=== PATIENT | female | born 1945 | race Caucasian/White ===

== ENCOUNTER 2017-12-20 06:49 | Day surgery (SDC) | payer OTHER ==
[~2017-12-20] VITALS: Ht 175.3 cm; Wt 67.7 kg
[2017-12-20] MEDS ORDERED: IOHEXOL 350 MG/ML 50 ML BTL (for Cath Lab) OTHER ONE (06:50)
[2017-12-20 07:15] VITALS: BP 139/68; PULSE 72; RESP 16; TEMP 98; O2SAT 94
[2017-12-20] MEDS ORDERED: FENO160T PO (07:15)
[2017-12-20] MEDS ORDERED: VITATAB11 (07:15)
[2017-12-20] MEDS ORDERED: OMEP20TA93 PO (07:15)
[2017-12-20] MEDS ORDERED: FLUT1BLS INH (07:15)
[2017-12-20] MEDS ORDERED: ATOR80TA45 PO (07:15)
[2017-12-20] MEDS ORDERED: ISOS30TA3 PO (07:15)
[2017-12-20] MEDS ORDERED: METO50TA PO (07:15)
[2017-12-20] MEDS ORDERED: LOSA100T3 PO (07:15)
[2017-12-20] MEDS ORDERED: AMLO10TA2 PO (07:15)
[2017-12-20] MEDS ORDERED: NITR0.4S SL (07:15)
[2017-12-20] MEDS ORDERED: ECASA81 PO (07:15)
[2017-12-20 07:33] LABS: AUTOMATED NEUTROPHIL # 3.4 TH/MM3 (1.8-7.7); BASOPHIL % 0.7 % (0.0-2.0); EOSINOPHIL # 0.2 TH/MM3 (0-0.4); EOSINOPHIL % 3.8 % (0.0-4.0); HEMATOCRIT 39.3 % (35.0-46.0); HEMOGLOBIN 13.6 GM/DL (11.6-15.3); LYMPHOCYTE # 1.6 TH/MM3 (1.0-4.8); MEAN CELL VOLUME 88.1 FL (80.0-100.0); MEAN CORPUSCULAR HEMOGLOBIN 30.5 PG (27.0-34.0); MEAN CORPUSCULAR HGB CONC 34.6 % (32.0-36.0); MEAN PLATELET VOLUME 9.7 FL (7.0-11.0); MONO % 9.2 % (0.0-8.0); MONOCYTE # 0.5 TH/MM3 (0-0.9); NEUT % 58.3 % (16.0-70.0); PLATELET COUNT 225 TH/MM3 (150-450); RED BLOOD COUNT 4.46 MIL/MM3 (4.00-5.30); RED CELL DISTRIBUTION WIDTH 14.6 % (11.6-17.2); WHITE BLOOD COUNT 5.8 TH/MM3 (4.0-11.0)
[2017-12-20 07:40] LABS: INTERNATIONAL NORMALIZED RATIO 1.1 RATIO; PROTHROMBIN TIME - PATIENT 10.8 SEC (9.8-11.6)
[2017-12-20] MEDS ORDERED: methylPREDNISolone SOD SUCC 125 MG/2 ML VIAL IV PUSH SCH (07:45)
[2017-12-20] MEDS ORDERED: FAMOTIDINE 20 MG/2 ML VIAL IV PUSH SCH (07:45)
[2017-12-20] MEDS ORDERED: diphenhydrAMINE HCL 50 MG/ML VIAL IV PUSH SCH (07:45)
[2017-12-20] MEDS ORDERED: SODIUM CHLOR 0.9% 1000 ML INJ 1,000 ML IV SCH (07:45)
[2017-12-20 07:52] LABS: BICARBONATE 25.2 MEQ/L (21.0-32.0); CALCIUM 9.1 MG/DL (8.5-10.1); CREATININE 1.09 MG/DL (0.50-1.00)
[2017-12-20] MEDS ORDERED: HEPARIN-NS/PF INJ 1,500 ML ONE (08:12)
[2017-12-20] MEDS ORDERED: NITROGLYCERIN INJ 5 ML ONE (08:12)
[2017-12-20] MEDS ORDERED: VERAPAMIL HCL 5 MG/2 ML VIAL ONE (08:12)
[2017-12-20] MEDS ORDERED: HEPARIN SODIUM - IV 10,000 UNITS/10 ML VIAL ONE (08:12)
[2017-12-20] MEDS ORDERED: MIDAZOLAM HCL 2 MG/2 ML VIAL ONE (08:48)
--- NOTE | 2017-12-20 09:40 | CATHPROC ---
[employer] HIS Report Study Information Study Number Admission Scheduled Start Study Start [id number] Dec 20 2017 6:49AM 12/20/2017 Dec 20 2017 8:27AM [facility] Cardiac Catheterization Admit Source Facility Department Other [facility] - [facility] Physician and Clinical Staff Initial Reno Hernandez Garment Looper Hong HERNANDES, Harish Other cathlab, cathlab Recorder Mick Archibald RCIS(BS) Scrub Ruba Yoo ,RT(R) Procedures Performed Procedure Location (Site) Vessel Name Coronary Angiograms LCA Left Coronary Coronary Angiograms RCA Right Coronary L Heart Cath Equipment Time Loan Processor Description Size Mfg Part Number Used/Scraped TRANSDUCER, TRUWAVE [id number] 08:38 BANKS MONTES * Used W/STOCKCOCK *[id number] [id number] *[id number] [id number] *[id number] 08:38 HALFPOPS BLANKET,WARM AIR CCL * Used *[id number] 08:38 HALFPOPS PACK, CCL CUSTOM * Used *[id number] 08:38 HALFPOPS SUPPORT, ARTERIAL ADULT 60604 *[id number] Used BAND, RADIAL COMPRESSION TR [id number] 09:28 VSE EVAKU[employer] ROSS[employer]ICAL 24CM Used SHORT 24 *[id number] 08:38 [employer] WIRE, EXCHANGE 260CM 3MMJ 260CM Used *[id number] 08:38 NAMIC MANIFOLD, 4 PORT * Used *[id number] 08:38 NYCOMED OMNIPAQUE, 350 MG, 150ML 150ML [id number] Used SHEATH, FR6 TRANSRADIAL RM*[id number] 08:38 [employer] FR 6 Used SLENDER 10CM *[id number] History: Current Medications Medication Dosage/Unit Route Frequency Last Date/Time Taken Statins (any) Beta Keyana ASA History: Risk Factors Family History of Hypertension Dyslipidemia Previous LA Previous Heart Failure Premature CAD Yes Yes No No No Prior Valve Prior PCI Prior CABG Surgery No No No Peripheral Artery Chronic Lung On Dialysis Diabetes Disease Disease No No No No History: Symptoms/Diagnosis Selection Items Chest pain History: CV Disease Selection Items Known CAD History: Stress Tests Stress or Imaging Studies Performed Yes Standard Exercise Stress Test No Stress Echo No Stress Test SPECT Stress Test SPECT Result Stress Test SPECT Ischemia Risk/Extent Yes Positive Low Stress Test CMR No Cardiac CTA Coronary Calcium Score No No History: Other Disease Selection Items CAD HTN History: LA/CV Data Previous Cath Date 07/02/2014 History: Other Current Smoker Packs a Day Years Used Pack Years Yes 1 55 55 Labs Hgb (g/dl) Hct (%) WBC (l/cumm) Platelets (thousands) 11.60-17.00 35.00-51.00 4.00-11.00 150.00-450.00 13.6 39.3 5.8 225 Creatinine (mg/dl) 0.50-1.30 Not Drawn INR (PTT:PT) 0.90-1.10 1.1 CPK-MB (ng/ML) 0.50-3.60 Not Drawn Medication Medication Total Dose (Bolus/Oral) Medication Total Dosage/Unit 1% XYLOCAINE 2 mL FENTANYL 25 mcg NTG (IC) 150 mcg RADIAL COCKTAIL 5 mL (Bolus) VERSED 0.5 mg Medications (Bolus/Oral) Medication Time Given Dosage/Unit Administered By Reason VERSED 12/20/2017 8:57:47 AM 0.5 mg Harish Pitts RN 0.5 mg VERSED given in lab by Harish Pitts RN in Left Antecubital via Peripheral IV. Ordered by Reno Rojas. FENTANYL 12/20/2017 8:58:00 AM 25 mcg Harish Pitts RN 25 mcg FENTANYL given in lab by Harish Pitts RN in Left Antecubital via Peripheral IV. Ordered by Reno [place] 1% XYLOCAINE 12/20/2017 8:58:17 AM 2 mL Reno Webster 2 mL 1% XYLOCAINE given in lab by Reno Webster in Right Radial via Subcutaneous. Ntg 200mcg Verapamil 2.5mg Heparin RADIAL COCKTAIL 12/20/2017 9:00:47 AM 5 mL (Bolus) Reno Webster 2500U 5 mL (Bolus) RADIAL COCKTAIL given in lab by Reno Webster via Radial. Using [Solution Name]. R renu: Ntg 200mcg Heparin 2800U. No Verapamil due to HR NTG (IC) 12/20/2017 9:24:57 AM 150 mcg Reno Webster 150 mcg NTG (IC) given in lab by Reno Webster via Intra-coronary. Medication (Drip) Medication Time Given Dosage/Unit Concentration/Unit Diluent (ml) Solutio n IV Solutions 12/20/2017 8:28:29 AM 0 mL (IV) 500 NaCl .9 Patient arrived on IV Solutions given by cathlab, cathlab in Left Antecubital via Peripheral IV. Pump /Drip Flow = 20 ml/hr using NaCl .9. Ordered by Reno Webster Initial Case Assessment Cardiovascular HR Rhythm NIBP Chest Pain 55 nsr 137/67 0 Edema Present Skin color Skin None Normal Warm Dry Circulatory - Right Pulses Dorsalis Pedis Femoral Radial 1 1 2 Scale (0,1,2,3,4,d) Scale (0,1,2,3,4,d) Neurological State Oriented to time-place- Alert Moves all extremities person Respiration - General Respiration Rate SpO2 (%) (B/min) 15 97 Final Case Assessment Cardiovascular HR Rhythm NIBP Chest Pain 54 nsr 103/53 0 Edema Present Skin color Skin None Normal Warm Dry Circulatory - Right Pulses Dorsalis Pedis Femoral Radial 1 1 2 Scale (0,1,2,3,4,d) Scale (0,1,2,3,4,d) Neurological State Oriented to time-place- Alert Moves all extremities person Respiration - General Respiration Rate SpO2 (%) (B/min) 15 92 Chronological Log Time Study Chronological Log 8:28:16 Patient arrived via Bed. 8:28:17 Patient Name, D.O.B, / Armband Verified By R.N. 8:28:17 Consent signed by the physician and the patient and verified by the [facility] staff. 8:28:18 Pre-op and post- op instructions given; patient acknowledges understanding of instructions. 8:28:18 Verbal Stimulation=2 Physical Stimulation=2 Airway=2 Respiration=2 TOTAL=8. (0=absent, 1=lugo ited, 2=present) 8:28:19 Presedation assessment performed by Automatic [facility] RN. 8:28:20 Allens test performed on the right radial and ulnar artery. POSITIVE. 8:28:24 Immediate Presedation assesment performed by physician. 8:28:25 Patient has been NPO for More than 6Hrs. 8:28:26 Skin Breakdown- none per patient 8:28:26 Patient Warmer Placed on the Table. 8:28:27 Carina Prominences Protected 8:28:29 A # 20 IV was noted in the Antecubital (left). Grade = 0 Patient arrived on IV Solutions given by cathlab, cathlab in Left Antecubital via Peripheral IV. Pump/Drip Flow = 20 8:28:29 ml/hr using NaCl .9. Ordered by Reno Webster 8:28:30 History and physical on the chart or being dictated. Vitals capture started with the following parameters, Patient=Adult, Interval=5 min, Initial Pre roorc=153 mmHg, 8:34:10 Deflation Rate=5 mmHg, Cuff placed on Left Arm 8:34:46 HR=57 bpm, TLIH=876/67 mmhg, SpO2=98.0 %, Resp=15 B/min, Pain=0, Meg=10, Rodriguez=2 8:35:27 Reference ECG taken Assessment: Initial Case, HR=55 BPM, Rhythm=nsr, IIRX=461/67 mmhg, Chest Pain=0, Edema=None, Col or=Normal, Skin = Warm, Dry 8:35:29 Right Pulses: Rell Ped=1, Femoral=1, Radial=2 Neurological: State=Alert, Ox3, MORENO Respiration: Resp=15 B/min, SpO2=97 % 8:36:46 HR=52 bpm, CTUR=496/60 mmhg, SpO2=96.0 %, Resp=18 B/min, Pain=0, Meg=10, Rodriguez=2 8:38:24 Right Radial and groin(s) prepped with 2% chlorhexidine, and draped after a 3 min. waiting t marvin. 8:38:45 HR=50 bpm, RETS=778/65 mmhg, SpO2=96.0 %, Resp=16 B/min, Pain=0, Meg=10, Rodriguez=2 8:40:48 HR=58 bpm, XEHQ=970/59 mmhg, SpO2=98.0 %, Resp=18 B/min, Pain=0, Meg=10, Rodriguez=2 8:42:49 HR=53 bpm, VAQW=236/58 mmhg, SpO2=97.0 %, Resp=39 B/min 8:44:20 MD paged 8:44:46 HR=52 bpm, ZKKO=073/60 mmhg, SpO2=97.0 %, Resp=15 B/min, Pain=0, Meg=10, Rodriguez=2 8:46:46 HR=52 bpm, ZXKV=245/60 mmhg, SpO2=97.0 %, Resp=15 B/min, Pain=0, Meg=10, Rodriguez=2 8:47:34 Pressure channel 1 zeroed. 8:48:45 HR=54 bpm, JRNN=191/61 mmhg, SpO2=97.0 %, Resp=16 B/min, Pain=0, Meg=10, Rodriguez=2 8:50:44 HR=52 bpm, JGIO=266/59 mmhg, SpO2=96.0 %, Resp=15 B/min, Pain=0, Meg=10, Rodriguez=2 8:51:00 MD arrived. 8:52:29 Contrast Scanned 8:52:31 Immediate Presedation assesment performed by physician. 8:52:45 HR=54 bpm, DGWP=104/58 mmhg, SpO2=95.0 %, Resp=20 B/min, Pain=0, Meg=10, Rodriguez=2 8:54:46 HR=55 bpm, ECDN=038/56 mmhg, SpO2=96.0 %, Resp=16 B/min, Pain=0, Meg=10, Rodriguez=2 Time Out. Correct patient, correct procedure, correct physician, labs, allergies, and equipment verified with catheter builder 8:56:34 team present. Fire risk assesment completed (see hard stop sheet for coding). Time Out Concu rred by MD and individual staff in procedure. 8:57:00 HR=54 bpm, SVWZ=456/56 mmhg, SpO2=94.0 %, Resp=16 B/min, Pain=0, Meg=10, Rodriguez=2 8:57:22 Verbal Stimulation=2 Physical Stimulation=2 Airway=2 Respiration=2 TOTAL=8. (0=absent, 1=lugo ited, 2=present) 8:57:47 0.5 mg VERSED given in lab by Harish Pitts RN in Left Antecubital via Peripheral IV. Ordered by Reno Webster 8:58:00 25 mcg FENTANYL given in lab by Harish Pitts RN in Left Antecubital via Peripheral IV. Order ed by Reno Webster 8:58:16 Case Start 8:58:17 2 mL 1% XYLOCAINE given in lab by Reno Webster in Right Radial via Subcutaneous. 8:58:43 HR=55 bpm, PQRE=101/60 mmhg, SpO2=95.0 %, Resp=20 B/min, Pain=0, Meg=10, Rodriguez=2 9:00:33 Access site was Right Radial Artery. A SHEATH, FR6 TRANSRADIAL SLENDER 10CM FR 6 was advanced into the Radial (right) using the Percu taneous 9:00:40 technique. 9:00:46 HR=54 bpm, OLDX=170/55 mmhg, SpO2=95.0 %, Resp=15 B/min, Pain=0, Meg=10, Rodriguez=2 5 mL (Bolus) RADIAL COCKTAIL given in lab by Reno Webster via Radial. Using [Solution Nam e]. Reason: Ntg 9:00:47 200mcg Heparin 2800U. No Verapamil due to HR A JR 4.0 INFINITI CATHETER FR 5 was advanced over a wire. OMNIPAQUE, 350 MG, 150ML 150ML was use d for 9:02:07 injections. 9:02:47 HR=55 bpm, NIBP=97/48 mmhg, SpO2=93.0 %, Resp=17 B/min, Pain=0, Meg=10, Rodriguez=2 Recorded Pressure: LV, HR=56, Condition=Condition 1 9:04:09 (Left Ventricle) LV 99/3/7 Recorded Pressure: LV, Ao, HR=57, Condition=Condition 1 9:04:26 (Left Ventricle) LV 88/3/4, (Aorta) Ao 99/45/67 9:04:42 HR=56 bpm, ZUYH=806/55 mmhg, Resp=24 B/min, Pain=0, Meg=10, Rodriguez=2 Recorded Pressure: Ao, HR=56, Condition=Condition 1 9:04:43 (Aorta) Ao 102/48/70 9:04:50 The RCA was injected and visualized at various angles. OMNIPAQUE, 350 MG, 150ML 150ML used. After removing the current catheter a JL 3.5 INFINITI CATHETER FR 5 was advanced over a WIRE, EX CHANGE 260CM 9:06:04 3MMJ 260CM. 9:06:43 HR=58 bpm, QHMC=749/57 mmhg, SpO2=94.0 %, Resp=15 B/min, Pain=0, Meg=10, Rodriguez=2 9:08:43 HR=57 bpm, ORNO=958/59 mmhg, SpO2=93.0 %, Resp=16 B/min, Pain=0, Meg=10, Rodriguez=2 9:09:46 The LCA was injected and visualized at various angles. OMNIPAQUE, 350 MG, 150ML 150ML used. 9:10:46 HR=56 bpm, CHAL=235/58 mmhg, SpO2=93.0 %, Resp=16 B/min, Pain=0, Meg=10, Rodriguez=2 9:12:45 HR=60 bpm, PEJE=067/58 mmhg, SpO2=89.0 %, Resp=16 B/min, Pain=0, Meg=10, Rodriguez=2 9:14:46 HR=54 bpm, FKWH=225/58 mmhg, SpO2=95.0 %, Resp=16 B/min, Pain=0, Meg=10, Rodriguez=2 9:15:00 Cine recording checked. 9:16:47 HR=56 bpm, TWNQ=428/60 mmhg, SpO2=95.0 %, Resp=16 B/min, Pain=0, Meg=10, Rodriguez=2 9:18:50 HR=55 bpm, OKBT=117/61 mmhg, DlL6=870.0 %, Resp=18 B/min, Pain=0, Meg=10, Rodriguez=2 9:20:48 HR=55 bpm, JLCF=693/60 mmhg, SpO2=94.0 %, Resp=15 B/min, Pain=0, Meg=10, Rodriguez=2 9:22:47 HR=54 bpm, SEFX=012/61 mmhg, SpO2=98.0 %, Resp=13 B/min, Pain=0, Meg=10, Rodriguez=2 9:24:50 HR=54 bpm, DUAR=753/60 mmhg, SpO2=95.0 %, Resp=34 B/min, Pain=0, Meg=10, Rodriguez=2 9:24:57 150 mcg NTG (IC) given in lab by Reno Webster via Intra-coronary. 9:26:51 HR=57 bpm, OKTL=576/53 mmhg, SpO2=93.0 %, Resp=16 B/min, Pain=0, Meg=10, Rodriguez=2 9:27:19 Catheter was removed 9:28:07 Case End (Physician broke scrub) Assessment: Final Case, HR=54 BPM, Rhythm=nsr, RDZI=635/53 mmhg, Chest Pain=0, Edema=None, Col or=Normal, Skin = Warm, Dry 9:28:17 Right Pulses: Rell Ped=1, Femoral=1, Radial=2 Neurological: State=Alert, Ox3, MORENO Respiration: Resp=15 B/min, SpO2=92 % 9:28:35 Sterile dressing applied to site 9:28:36 No case complications noted. 9:28:37 Cine recording checked. Radial Compression Device Used. 41 mLs of air placed in BAND, RADIAL COMPRESSION TR SHORT 24 2 4CM. Affected 9:28:39 hand 98 % O2 saturation. 9:28:46 HR=57 bpm, QWBB=992/55 mmhg, SpO2=91.0 %, Resp=15 B/min, Pain=0, Meg=10, Rodriguez=2 9:28:50 Bedside Report will be given. 9:28:52 Verbal Stimulation=2 Physical Stimulation=2 Airway=2 Respiration=2 TOTAL=8. (0=absent, 1=l imited, 2=present) 9:28:57 A Left Heart Cath was performed. 9:30:49 HR=54 bpm, BFBQ=258/62 mmhg, SpO2=94.0 %, Resp=16 B/min, Pain=0, Meg=10, Rodriguez=2 9:32:49 HR=56 bpm, TXPH=934/64 mmhg, SpO2=95.0 %, Resp=14 B/min, Pain=0, Meg=10, Rodriguez=2 9:38:44 [facility] - Contrast Media Used In Study Contrast Total Opened (mL) Total Used (mL) Total Wasted (mL) Omnipaque 40 40 0 End Study - Radiation Exposure Fluoro Time (minutes) 3.0 End Study - Patient Disposition Complications Transferred To Interventional Outcome No [facility] Holding No attempt made
[2017-12-20] MEDS ORDERED: MISC INFORMATION XX ONE (10:00)
--- NOTE | 2017-12-20 10:28 | MA ---
cc: Reno Webster DO DATE: 12/20/2017 DATE OF PROCEDURE: 12/20/2017. PROCEDURE: Left heart catheterization, coronary angiogram, moderate sedation 30 minutes. PREPROCEDURE DIAGNOSIS: Abnormal stress test (low risk), chest pain. POSTPROCEDURE DIAGNOSIS: Coronary artery disease. MEDICATIONS: Versed 0.5 mg, fentanyl 25 mcg, nitro 400 mcg, heparin 2800 units. CONTRAST USED: 40 mL FLUOROSCOPY: 3.0 minutes. MODERATE SEDATION: 30 minutes. FRAILTY SCORE: 3. ESTIMATED BLOOD LOSS: 10 mL PROCEDURAL SUMMARY: Kimi Weinstein is a pleasant 72-year-old female who sees my partner, Dr. Britt, in the office and due to chest pain underwent stress testing. This showed a small defect in the inferior lateral and he attempted to treat it medically, but she continued to have some angina and so she was recommended cardiac catheterization to define her coronary anatomy. Risks, benefits and alternatives were explained to her and she consented as such. She was brought to the lab and prepped in the usual sterile fashion. The right radial artery was accessed using a modified Seldinger technique and placement of a 5/6-Swiss Slender sheath. This is easily aspirated and flushed. A JR4 was advanced over a J-wire to the ascending aorta and across the aortic valve for measurement of left ventricular pressure. This was pulled back across the aortic valve showing no significant gradient of aortic stenosis. JR4 was used for selective angiography of the right coronary artery system. This is exchanged out for a JL3.5, which was used for selective angiography of the left coronary artery system. JL3.5 was removed over a J wire. A radial band was placed over the arteriotomy site for hemostasis. The patient left the skilled laborer cardiovascularly stable. FINDINGS: LEFT MAIN: Normal-sized vessel with 10% disease. It bifurcates into an LAD and circumflex. LAD: Normal-sized vessel with 10% disease throughout the proximal portion. Mid-portion has mild luminal irregularities. It gives off 1 major diagonal, which has an upper and lower branch and the ostium has about 30% disease. LEFT CIRCUMFLEX: Normal-sized vessel with mild luminal irregularities throughout the proximal portion. The distal portion has a 99% blockage with minimal flow through. This supplies a fourth obtuse marginal, which does have collaterals from the distal LAD. The first obtuse marginal has ostial 70% disease. 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 The second obtuse marginal has 40% ostial stenosis and the third obtuse marginal is relatively normal. All 4 obtuse marginals are overall small. Specifically, the fourth obtuse marginal of possibly 1-1.5 mm. RCA: Normal-sized vessel with previous stents patent and 10% restenosis. Distally, it supplies the PDA as well as a posterolateral branch. PDA has a 30% lesion in it. LVEDP: 4. IMPRESSIONS: 1. Chest pain. 2. Coronary artery disease as above. 3. Abnormal stress test (low risk). RECOMMENDATIONS: 1. Ms. Weinstein does appear to have significant disease of her first and fourth obtuse marginal, which may be causing her angina. 2. Overall, her first marginal is relatively small, but comes back to the ostium and any intervention would impede on the left circumflex. Her fourth marginal is subtotally occluded with collaterals from the LAD. Overall, this is an extensively small vessel at 1.5 mm max and so difficult to determine if a stent would even be able to be placed. 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 3. I discussed with her and, since Dr. Britt has changed around her medications, her angina has decreased immensely and she has been feeling relatively well. I did offer consideration of an intervention, but she would like to try continued medical management for now. 4. I did let her know that if she had any questions or further considerations of intervention, she could call me and we could discuss it further before proceeding. Thank you for allowing me to see Kimi Weinstein. If there are any questions, please do not hesitate to call. DO ADAN Verdugo/MAYRA , 09:49 AM , 10:26 AM
--- NOTE | 2017-12-20 18:17 | EKG ---
Date Performed: 12/20/2017 Time Performed: 07:42:08 PTAGE: 72 years EKG: Sinus bradycardia. Anterolateral ST-T changes may be due to myocardial ischemia Abnormal EC G PREVIOUS TRACING : 03/22/1998 14.01 When compared to the prior EKG,patient is now bradycardic DOCTOR: Bisi Lombardo Interpretating Date/Time 12/20/2017 18:16:46
== END 2017-12-20 13:07 | disposition home or self-care (01) ==
LOC: EDSEX 06:49 → HDIC 06:49 → HDOC 06:49
PROVIDERS: ATTEND Nuclear Medicine Nuclear Cardiology
DX: I25.119 Atherosclerotic heart disease of native coronary artery with unspecified angina pectoris (principal); I70.0 Atherosclerosis of aorta; K21.9 Gastro-esophageal reflux disease without esophagitis; J44.9 Chronic obstructive pulmonary disease, unspecified; E78.5 Hyperlipidemia, unspecified; E78.00 Pure hypercholesterolemia, unspecified; I11.9 Hypertensive heart disease without heart failure; R06.02 Shortness of breath; F17.200 Nicotine dependence, unspecified, uncomplicated; Z01.818 Encounter for other preprocedural examination; Z96.659 Presence of unspecified artificial knee joint
CPT/HCPCS: 80048; 85025; 85610; 85730; 93005; 93458; 99152; 99153; C1769; C1893; J1644; J2250; J3010; Q9967